=== PATIENT | female | born 1995 | race Caucasian/White ===

== ENCOUNTER 2017-01-14 17:35 | Emergency (ER) | payer OTHER ==
[~2017-01-14] VITALS: Ht 160 cm; Wt 94.5 kg
[~2017-01-14 17:35] MED LIST: BACTDS PO
[2017-01-14 17:42] VITALS: Ht 160 cm; Wt 94.5 kg
[2017-01-14] MEDS ORDERED: KETOROLAC 30 MG INJ IM STA (18:33)
[2017-01-14] MEDS ORDERED: ACETAMINOPHEN 500 MG TAB PO STA (18:33)
[2017-01-14] MEDS ORDERED: AMO500 PO (18:34)
[2017-01-14] MEDS ORDERED: IBUP400T22 PO (18:34)
--- NOTE | 2017-01-14 18:36 | ERD ---
ER Documentation Chief Complaint Date/Time DATE: 01/14/17 TIME: 18:36 Chief Complaint sore throat and headache since last night HPI 21-year-old female presents to the emergency department complaining of sore throat and headache since yesterday. Patient states that she is a fever. She rates the pain moderate severity. She has difficulty swallowing. She has not taken any medication for this. Denies any cough ROS All systems reviewed and are negative except as per history of present illness. Medications Home Meds Active Scripts Ibuprofen* (Ibuprofen*) 400 Mg Tablet, 400 MG PO Q6H Y for PAIN, #30 TAB Prov:IRWIN NORTON PA-C 01/14/17 Amoxicillin* (Amoxicillin*) 500 Mg Cap, 500 MG PO BID for 10 Days, CAP Prov:IRWIN NORTON PA-C 01/14/17 Sulfamethoxazole-Trimethoprim* (Bactrim* DS) 800-160 Mg Tab, 1 TAB PO BID for 5 Days, TAB Prov:CRISTI GONZALES 03/14/15 Allergies Allergies: Coded Allergies: No Known Allergy (Unverified , 03/06/14) PMhx/Soc History of Surgery: No Anesthesia Reaction: No Hx Neurological Disorder: No Hx Respiratory Disorders: No Hx Cardiac Disorders: No Hx Psychiatric Problems: No Hx Miscellaneous Medical Probl: No Hx Alcohol Use: No Hx Substance Use: No Hx Tobacco Use: No Physical Exam Vitals Vital Signs Date Time Temp Pulse Resp B/P Pulse Ox O2 Delivery O2 Flow Rate FiO2 01/14/17 17:42 100.7 126 18 126/68 97 Physical Exam Const: Well-developed well-nourished no acute distress Head: Atraumatic Eyes: Normal Conjunctiva ENT: Tonsillar erythema with exudates Neck: Full range of motion..~ No meningismus. Mild lymphadenopathy Resp: Clear to auscultation bilaterally Cardio: Regular rate and rhythm, no murmurs Abd: Soft, non tender, non distended. Normal bowel sounds Skin: No petechiae or rashes Back: No midline or flank tenderness Ext: No cyanosis, or edema Neur: Awake and alert Psych: Normal Mood and Affect Results 24 hrs Current Medications Medications (Trade) Dose Ordered Sig/Rosalind Route PRN Reason Start Time Stop Time Status Last Admin Dose Admin Ketorolac Tromethamine (Toradol) 30 mg ONCE STAT IM 8/2/17 18:33 01/14/17 18:34 DC Acetaminophen (Tylenol Tab) 1,000 mg ONCE STAT PO 01/14/17 18:33 01/14/17 18:34 DC Procedures/MDM This is a 21-year-old female presenting to the emergency department with fever, pharyngitis with tonsillar exudates, mild cervical lymphadenopathy and no cough which is likely due to strep pharyngitis. In the ED patient was febrile, she was given Toradol and Tylenol, fever trend downward. There is no evidence of peritonsillar retropharyngeal abscess. Patient was given prescription for Amoxicillin. Patient stable to be discharged home. Discussed return to the ER for any worsening sinus symptoms patient understands and agrees with Departure Diagnosis: Primary Impression: Strep pharyngitis Condition: Stable Patient Instructions: Pharyngitis, Strep (Presumed) Additional Instructions: FOLLOW UP WITH YOUR PRIMARY CARE PHYSICIAN TOMORROW.Return to this facility if you are not improving as expected. Take all medicines as directed. Return to this facility if you are not improving as expected. IRWIN NORTON PA-C Jan 14, 2017 18:36
== END 2017-01-14 19:05 | disposition home or self-care (01) ==
LOC: FTE 17:35
DX: J02.0 Streptococcal pharyngitis (principal)
CPT/HCPCS: 96372; J1885; Z7502; Z7610

== ENCOUNTER 2017-05-22 13:24 | Emergency (ER) | payer OTHER ==
[~2017-05-22] VITALS: Ht 157.5 cm; Wt 92.5 kg
[~2017-05-22 13:24] MED LIST changes: +AMOX500C2 PO; +IBUP400T22 PO
[2017-05-22 13:28] VITALS: Ht 157.5 cm; Wt 92.5 kg
--- NOTE | 2017-05-22 15:03 | ERD ---
ER Documentation Chief Complaint Chief Complaint Complains of vomiting and diarrhea x 3 days HPI 21-year-old female, previously healthy, presents to the emergency department complaining about 3 days with vomiting and diarrhea. The vomiting is described as postprandial, 3 per day, no blood noticed. The diarrhea is greenish, explosive, some mucus noticed associated with subjective fever, general malaise and intermittent cramping abdominal pain 4/10. No treatment attempted at this time, no history of recent traveling. Possible suspicious food. ROS A 12-point review of systems was performed and negative other than presented in the history of present illness. SYSTEMIC symptoms: no fever, chills, no night sweats, no weight loss EYE symptoms: No blurred vision, no eye discharge OTOLARYNGEAL symptoms: No hearing loss. No ear pain, no sore throat CARDIOVASCULAR symptoms: No chest pain or discomfort, no palpitations. PULMONARY symptoms: No dyspnea, no cough, no wheezing. GASTROINTESTINAL symptoms: Positive for diarrhea and vomiting per HPI MUSCULOSKELETAL symptoms: No arthralgias, no muscle aches. NEUROLOGY symptoms: No confusion, no syncope, no numbness or tingling. SKIN: No rashes Medications Home Meds Active Scripts Ranitidine Hcl* (Zantac*) 150 Mg Tablet, 150 MG PO BID Y for EPIGASTRIC PAIN, # 30 TAB Prov:TOMMY MONTANO MD 05/22/17 Ciprofloxacin Hcl* (Ciprofloxacin Hcl*) 250 Mg Tablet, 250 MG PO BID for 3 Days , #6 TAB Prov:TOMMY MONTANO MD 05/22/17 Ibuprofen* (Ibuprofen*) 400 Mg Tablet, 400 MG PO Q6H Y for PAIN, #30 TAB Prov:IRWIN NORTON PA-C 01/14/17 Amoxicillin* (Amoxicillin*) 500 Mg Cap, 500 MG PO BID for 10 Days, CAP Prov:IRWIN NORTON PA-C 01/14/17 Sulfamethoxazole-Trimethoprim* (Bactrim* DS) 800-160 Mg Tab, 1 TAB PO BID for 5 Days, TAB Prov:CRISTI GONZALES 03/14/15 Allergies Allergies: Coded Allergies: No Known Allergy (Unverified , 03/06/14) PMhx/Soc History of Surgery: No Anesthesia Reaction: No Hx Neurological Disorder: No Hx Respiratory Disorders: No Hx Cardiac Disorders: No Hx Psychiatric Problems: No Hx Miscellaneous Medical Probl: No Hx Alcohol Use: No Hx Substance Use: No Hx Tobacco Use: No Physical Exam Vitals Vital Signs Date Time Temp Pulse Resp B/P Pulse Ox O2 Delivery O2 Flow Rate FiO2 05/22/17 15:20 98.2 101 20 Room Air 05/22/17 13:28 98.7 66 20 112/61 98 Physical Exam Patient is in no acute distress, vital signs stable. Alert and fully oriented. EYES: PERRLA, EOMI, Sclera and conjunctiva appear normal. EARS: Canals clear, tympanic membranes WNL THROAT: Normal oropharynx. NECK: Supple, No lymphadenopathy. Full ROM without pain or tenderness. HEART: RRR, no rubs, murmurs, clicks or gallops. LUNGS: Clear to auscultation. ABDOMEN: Soft, non-tender without masses or hepatosplenomegaly. EXTREMITIES: No edema bilaterally. BACK: Full ROM, no deformity, normal back exam NEURO: Cranial nerves grossly intact, no motor or sensory deficit Procedures/MDM 21-year-old female, previously healthy, presents to the emergency department complaining of a 3 days with intermittent cramping abdominal pain associated with nausea, diarrhea and subjective fever. Vital signs stable, Physical exam unremarkable, abdomen benign. Differential diagnosis include but not limited to: UTI, colitis, gastroenteritis , kidney stones, irritable bowel syndrome, inflammatory bowel syndrome, malabsorption syndrome, cholelithiasis, food intolerance, medication side effect. Less likely appendicitis, peritonitis, pancreatitis, diverticulitis, bowel obstruction. Low suspicion for acute abdomen. Physical examination and clinical presentation consistent most likely with acute gastroenteritis. During the ED course the patient remained stable, no new complaints. Results and clinical impression discussed with patient who agrees with management. The patient is stable to be treated outpatient and will be discharged home with a Rx for ciprofloxacin and ranitidine, some side effects of prescribed medications (headache, rash, nausea, vomiting, diarrhea, drowsiness, habituation, bleeding, hypertension, interactions with other medications) were reviewed. The patient was instructed to follow up with the primary care provider in the next 48h. If symptoms persist, worsen or new symptoms develop, then patient should return to the ED immediately. Instructions explained and given directly by me to the patient in [place] with acknowledgment and demonstrated understanding. Disclaimer: Inadvertent spelling and grammatical errors are likely due to EHR/ dictation software use and do not reflect on the overall quality of patient care. Also, please note that the electronic time recorded on this note does not necessarily reflect the actual time of the patient encounter. Departure Diagnosis: Primary Impression: Infectious gastroenteritis Condition: Stable Additional Instructions: Call your primary care doctor TOMORROW for an appointment during the next 1-2 days. See the doctor sooner or return here if your condition worsens before your appointment time. Thank you very much for allowing us to participate in your care. Your health and safety is our top priority at [facility]. Have prescriptions filled and follow precisely the directions on the label. Follow-up with primary care provider during the next 4 days and bring all the information and medications prescribed. If illness has not improved in 2 days, then make an appointment with primary care provider. If the provider is unavailable, return to the Emergency Department immediately. TOMMY MONTANO MD May 22, 2017 15:03
[2017-05-22] MEDS ORDERED: CIPR-193 PO (15:04)
[2017-05-22] MEDS ORDERED: RANI150T9 PO (15:04)
[2017-05-22 15:20] VITALS: PULSE 101; RESP 20; TEMP 98.2
== END 2017-05-22 15:18 | disposition home or self-care (01) ==
LOC: FTE 13:24
DX: A09 Infectious gastroenteritis and colitis, unspecified (principal)
CPT/HCPCS: 99283

== ENCOUNTER 2018-01-27 19:19 | Emergency (ER) | END 2018-01-27 22:39 | disposition home or self-care (01) ==

== ENCOUNTER 2018-07-10 17:01 | Emergency (ER) | payer MEDICAID, OTHER ==
[~2018-07-10] VITALS: Wt 89.0 kg
[~2018-07-10 17:01] MED LIST changes: +CEPH-443 PO; +CIPR-193 PO; +IBUP-1541 PO; +IBUP-1561 PO; -IBUP400T22 PO; +RANI150T35 PO
[2018-07-10 17:04] VITALS: BP 119/84; PULSE 110; RESP 18
[2018-07-10] MEDS ORDERED: AMOX500C2 PO (17:50)
--- NOTE | 2018-07-10 17:56 | ERD ---
ER Documentation Chief Complaint Chief Complaint SORE THROAT TODAY HPI 22-year-old otherwise healthy female presents for evaluation of sore throat with associated cough. Patient denies fever, she has had recurrent tonsillar infections, she has no shortness of breath, she denies nausea or vomiting. ROS All systems reviewed and are negative except as per history of present illness. Medications Home Meds Active Scripts Amoxicillin* (Amoxicillin*) 500 Mg Cap, 500 MG PO TID for 7 Days, CAP Prov:KARMA ACEVEDO MD 07/10/18 Ibuprofen* (Motrin*) 400 Mg Tab, 400 MG PO Q6, #30 TAB Prov:ELENA,RICHARD 01/27/18 Cephalexin* (Keflex*) 500 Mg Capsule, 500 MG PO QID for 10 Days, #40 CAP Prov:ELENA,RICHARD 01/27/18 Ranitidine Hcl* (Zantac*) 150 Mg Tablet, 150 MG PO BID PRN for EPIGASTRIC PAIN, #30 TAB Prov:TOMMY MONTANO MD 05/22/17 Ciprofloxacin Hcl* (Ciprofloxacin Hcl*) 250 Mg Tablet, 250 MG PO BID for 3 Days, #6 TAB Prov:TOMMY MONTANO MD 05/22/17 Ibuprofen* (Ibuprofen*) 400 Mg Tablet, 400 MG PO Q6H PRN for PAIN, #30 TAB Prov:IRWIN NORTON PA-C 01/14/17 Amoxicillin* (Amoxicillin*) 500 Mg Cap, 500 MG PO BID for 10 Days, CAP Prov:IRWIN NORTON PA-C 01/14/17 Sulfamethoxazole-Trimethoprim* (Bactrim* DS) 800-160 Mg Tab, 1 TAB PO BID for 5 Days, TAB Prov:CRISTI GONZALES 03/14/15 Allergies Allergies: Coded Allergies: No Known Allergy (Unverified , 03/06/14) PMhx/Soc Medical and Surgical Hx: pt denies Medical Hx, pt denies Surgical Hx History of Surgery: No Anesthesia Reaction: No Hx Neurological Disorder: No Hx Respiratory Disorders: No Hx Cardiac Disorders: No Hx Psychiatric Problems: No Hx Miscellaneous Medical Probl: No Hx Alcohol Use: No Hx Substance Use: No Hx Tobacco Use: No Smoking Status: Never smoker Physical Exam Vitals Vital Signs Date Temp Pulse Resp B/P (MAP) Pulse Ox O2 O2 Flow FiO2 Time Delivery Rate 07/10/18 98.1 110 18 119/84 99 17:04 (96) Physical Exam Const: No acute distress Head: Atraumatic Eyes: Normal Conjunctiva ENT: Normal External Ears, Nose and Mouth. Tonsils are enlarged with bilateral exudates, uvula is midline, there is no trismus, there is no overlying induration of the neck, there are no fluctuant masses. Neck: Full range of motion. No meningismus. Resp: Clear to auscultation bilaterally Cardio: Regular rate and rhythm, no murmurs Abd: Soft, non tender, non distended. Normal bowel sounds Skin: No petechiae or rashes Back: No midline or flank tenderness Ext: No cyanosis, or edema Neur: Awake and alert Psych: Normal Mood and Affect Procedures/MDM 22-year-old female presents with sore throat, symptoms are most consistent with a likely URI, given her recurrent tonsillar infections, I did not recommend that she follow-up with her primary care doctor for outpatient ENT evaluation, patient has no evidence of peritonsillar abscess, very low suspicion for RPA or other serious bacterial infection, I advised to watch and wait approach to antibiotics, advised to give symptoms 48 hours, if they do not improve at that point she may consider taking antibiotics, at discharge she was in no acute distress. Departure Diagnosis: Primary Impression: Sore throat Condition: Stable Patient Instructions: Self-Care for Sore Throats Additional Instructions: Call your primary care doctor TOMORROW for an appointment during the next 2-3 days.See the doctor sooner or return here if your condition worsens before your appointment time. Wait 48 hours before taking antibiotics, if your symptoms are improving, I would not recommend taking them. KARMA ACEVEDO MD Jul 10, 2018 17:56
== END 2018-07-10 18:28 | disposition home or self-care (01) ==
LOC: E/R 17:01
DX: J02.9 Acute pharyngitis, unspecified (principal)
CPT/HCPCS: 99283